=== PATIENT | female | born 1960 | race Caucasian/White ===

== ENCOUNTER 2018-08-23 21:47 | Emergency (ER) | payer SELFPAY ==
[~2018-08-23] VITALS: Ht 172.7 cm; Wt 64.1 kg
[2018-08-23 21:54] VITALS: Ht 172.7 cm; Wt 64.1 kg
[2018-08-23] MEDS ORDERED: ZOLOFT50 MG PO (21:55)
[2018-08-23] MEDS ORDERED: KLONOPIN1 MG PO (21:56)
[2018-08-23] MEDS ORDERED: ULTRAM50 MG (21:56)
[2018-08-23] MEDS ORDERED: HYDROCODON-ACE1 EA10 PO (22:57)
[2018-08-23] MEDS ORDERED: VOLTAREN75 MG PO (22:57)
[2018-08-23 23:48] VITALS: BP 132/85
== END 2018-08-23 23:49 | disposition home or self-care (01) ==
LOC: D.ER 21:47
DX: S42.292A Other displaced fracture of upper end of left humerus, initial encounter for closed fracture (principal); W18.30XA Fall on same level, unspecified, initial encounter; Y93.89 Activity, other specified; Y92.89 Other specified places as the place of occurrence of the external cause